=== PATIENT | female | born 1970 | race African-American/Black ===

== ENCOUNTER 2017-05-10 18:17 | Emergency (ER) | payer OTHER ==
[2017-05-10 22:34] VITALS: BP 125/80
== END 2017-05-10 22:34 | disposition home or self-care (01) ==
LOC: ED 18:17
DX: H53.8 Other visual disturbances (principal); G89.29 Other chronic pain; M25.512 Pain in left shoulder

== ENCOUNTER 2019-11-10 18:38 | Emergency (ER) | payer OTHER ==
[~2019-11-10] VITALS: Ht 177.8 cm; Wt 81.6 kg
[2019-11-10 19:04] VITALS: Ht 177.8 cm; Wt 81.6 kg
[2019-11-10 20:01] VITALS: BP 123/58
== END 2019-11-10 20:01 | disposition home or self-care (01) ==
LOC: ED 18:38
DX: S86.012A Strain of left Achilles tendon, initial encounter (principal); Z88.0 Allergy status to penicillin; Z98.890 Other specified postprocedural states; X58.XXXA Exposure to other specified factors, initial encounter; Y93.89 Activity, other specified; Y92.89 Other specified places as the place of occurrence of the external cause; Y99.8 Other external cause status
CPT/HCPCS: J1885; Q0092